=== PATIENT | female | born 1995 | race American Indian/Alaskan Native ===

== ENCOUNTER 2019-05-26 16:23 | Emergency (ER) | payer SELFPAY ==
[2019-05-26 17:46] VITALS: BP 126/83
--- NOTE | 2019-05-26 18:04 | Event Note ---
ED Screening Note ED Screening Note: This initial assessment/diagnostic orders/clinical plan/treatment(s) is/are subject to change based on patients health status, clinical progression and re- assessment by fellow clinical providers in the ED. Further treatment and workup at subsequent clinical providers discretion. Patient/guardian urged not to elope from the ED as their condition may be serious if not clinically assessed and managed. Initial orders include: 24yo BF states that she has vaginal discomfort since she tried to remove pubic hair via waxing x 2 days.
[2019-05-26 19:14] LABS: Bilirubin,Urine NEG (Negative); Blood,Urine NEG (Negative); Color,Urine Yellow (Yellow); Mucus,Urine 3+ /HPF; Urobilinogen,Urine < 2.0 mg/dL (<2.0)
[2019-05-26 19:29] LABS: HCG Qualitative,Urine Negative (Negative)
== END 2019-05-26 22:57 | disposition left against medical advice (07) ==
LOC: ED 16:23
DX: N89.8 Other specified noninflammatory disorders of vagina (principal); Z53.21 Procedure and treatment not carried out due to patient leaving prior to being seen by health care provider
CPT/HCPCS: 81001; 81025